=== PATIENT | male | born 1950 | race Caucasian/White ===

== ENCOUNTER → 2018-11-07 13:04 | Emergency (ER) | payer BC, MEDICARE ==
[~2018-11-07 13:04] MED LIST: cloNIDine TAB* 0.1 MG PO ONE; traMADol TAB* 50 MG PO ONE
--- NOTE | 2018-11-07 13:42 | ED ---
Hypertension - HPI Summary HPI Summary: A 68 y/o M presents to ED with c/o elevated BP (220/110) onset this AM. He's been taking his BP daily as he's scheduled to see his PCP in a month. Yesterday , it was in the high 160s systolic. He takes Losartan daily and Atenolol bid. He s had Losartan 100mg today at 0800. Denies CP, SOB. PMHx: stroke in 2010 (no deficits); DM II and takes Metformin bid. He does not see a policy advisor. He notes having a muscular pain in his L glute. Vitals at bedside: BP: 221/92 and HR: 59 bpm. 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, Medical Records Onset/Duration: Started Hours Ago, Still Present Timing: Constant Associated Signs & Symptoms: Negative, Other: - muscular pain in L glute - Allergies/Home Medications Allergies/Adverse Reactions: Allergies Allergy/AdvReac Type Severity Reaction Status Date / Time No Known Allergies Allergy Verified 11/07/18 13:14 Home Medications: Home Medications Atorvastatin* [Lipitor*] 40 mg PO DAILY 11/07/18 [History Confirmed 11/07/18] Clobetasol Propionate [Clobex] 125 ml TOPICAL DAILY 11/07/18 [History Confirmed 11/07/18] Ibuprofen TAB* [Motrin TAB* 400 MG] 400 mg PO Q6H PRN 11/07/18 [History Confirmed 11/07/18] Losartan TAB* [Cozaar TAB*] 50 mg PO DAILY 11/07/18 [History Confirmed 11/07/18] Sildenafil Citrate [Viagra] 100 mg PO DAILY PRN 11/07/18 [History Confirmed 06/17] PMH/Surg Hx/FS Hx/Imm Hx Previously Healthy: No - stroke Endocrine/Hematology History: Reports: Hx Diabetes Cardiovascular History: Reports: Hx Hypertension Infectious Disease History: No Infectious Disease History: Denies: Traveled Outside the [place] in Last 30 Days - Family History Family History: mother - stroke - Social History Occupation: Retired Lives: With Family Review of Systems Positive: Other - pos: elevated BP. Negative: Chest Pain Negative: Shortness Of Breath Musculoskeletal: Other - pos: pain to L glute All Other Systems Reviewed And Are Negative: Yes Physical Exam - Summary Physical Exam Summary: GENERAL: Patient is a well-developed and nourished MALE who is lying comfortable in the stretcher. Patient is not in any acute respiratory distress. HEAD AND FACE: Normocephalic EYES: PERRLA, EOMI x 2. EARS: Hearing grossly intact. MOUTH: Oropharynx within normal limits. NECK: Supple, trachea is midline, no adenopathy, no JVD, no carotid bruit. CHEST: Symmetric, no tenderness at palpation LUNGS: Clear to auscultation bilaterally. No wheezing or crackles. CVS: Regular rate and rhythm, S1 and S2 present, no murmurs or gallops appreciated. ABDOMEN: Soft, non-tender. Bowel sounds are normal. No abdominal abnormal pulsations. EXTREMITIES: Full ROM in all major joints, no edema, no cyanosis or clubbing. NEURO: Alert and oriented x 3. No acute neurological deficits. Speech is normal and follows commands. SKIN: Dry and warm Triage Information Reviewed: Yes Vital Signs On Initial Exam: Initial Vitals Temp Pulse Resp BP Pulse Ox 97.6 F 61 16 247/107 59 11/07/18 13:10 11/07/18 13:10 11/07/18 13:10 11/07/18 13:10 11/07/18 13:10 Vital Signs Reviewed: Yes Diagnostics - Vital Signs Vital Signs Temp Pulse Resp BP Pulse Ox 11/07/18 13:10 97.6 F 61 16 247/107 59 - Laboratory Result Diagrams: 11/07/18 13:45 11/07/18 13:45 Lab Statement: Any lab studies that have been ordered have been reviewed, and results considered in the medical decision making process. - Radiology CXR Radiology Interpretation Completed By: Radiologist Summary of Radiographic Findings: IMPRESSION: No active cardiopulmonary dz. ED provider has reviewed this report. - EKG 1350 Cardiac Rate: NL - 66bpm EKG Rhythm: Sinus Rhythm Summary of EKG Findings: nml axis, nml interval Re-Evaluation - Re-Evaluation 1 Re-Evaluation Time: 15:58 Change: Improved Comment: Discussing results and plans for discharge. Pt's vitals ~ 170 systolic. Pt requesting Tramadol for his glute pain, he thinks the elevated BP is largely caused by that. Discussed that he should not take Ibuprofen due to his kidney function. Hypertension Course/Dx - Course Course Of Treatment: Pt is a 68 y/o M presenting with hypertensive episode at home (220/110). Workup is remarkable for APTT: 37.3, BUN: 29, Creatinine: 1.28 , BUN/C ratio: 22.7, glucose: 170, BNP: 165. Patient's BP is 25% of when he came in. Discussed with patient that he should stop taking Ibupfrofen due to his kidney function. I will prescribe Tramadol for his glute pain, as patient feels the elevated BP is in part due to the pain. The patient will be discharged. I discussed results with patient and he reports feeling better. He is hemodynamically stable and safe for discharge. Strict return precautions given and he will otherwise follow up with his PCP as scheduled tomorrow at 1015. - Diagnoses Provider Diagnoses: Hypertension Discharge - Sign-Out/Discharge Documenting (check all that apply): Patient Departure - DC Patient Received Moderate/Deep Sedation with Procedure: No - Discharge Plan Condition: Stable Disposition: HOME Prescriptions: traMADol TAB* [Ultram*] 50 mg PO Q8H PRN #15 tab MDD 3 PRN Reason: Pain Patient Education Materials: Hypertension (ED) Referrals: Lisa Martinez DO [Primary Care Provider] - 2 Days Additional Instructions: Follow up with your primary care physician in 1-3 days. RETURN TO THE EMERGENCY DEPARTMENT FOR CHANGING OR WORSENING SYMPTOMS. - Billing Disposition and Condition Condition: STABLE Disposition: Home - Attestation Statements Document Initiated by Celeste: Yes Documenting Scribe: Carol William Provider For Whom Celeste is Documenting (Include Credential): Dr. Andrea Diamond MD Scribe Attestation: I, Carol William, scribed for Dr. Andrea Diamond MD on 11/07/18 at 9887. Scribe Documentation Reviewed: Yes Provider Attestation: The documentation as recorded by the Carol moore accurately reflects the service I personally performed and the decisions made by me, Dr. Andrea Diamond MD Status of Scribe Document: Viewed
[2018-11-07 13:54] LABS: ABS Basophils 0.1 10^3/ul (0-0.2); ABS Eosinophils 0.3 10^3/ul (0-0.6); ABS Lymphocytes 1.6 10^3/ul (1.0-4.8); ABS Monocytes 0.9 10^3/ul (0-0.8); ABS Neutrophils 7.2 10^3/ul (1.5-7.7); ABS Nucleated RBC 0 10^3/ul; Eosinophil % 2.7 %; Hematocrit 44 % (36-46); Mean Corpuscular HGB Conc 34 g/dL (31-36); Mean Corpuscular Hemoglobin 32 pg (27-31); Mean Corpuscular Volume 96 fL (80-94); Mean Platelet Volume 6.5 fL (7.4-10.4); Nucleated Red Blood Cells % 0.1; Platelet Count 319 10^3/uL (150-450); Red Blood Count 4.64 10^6 /uL (4.18-5.48); Red Cell Distribution Width 14 % (10.5-15); White Blood Count 10.1 10^3/uL (3.5-10.8)
[2018-11-07 14:04] LABS: Activated Partial Thrombo Time 37.3 seconds (26.0-36.3); INR 0.84 (0.77-1.02)
[2018-11-07 14:12] LABS: Albumin 4.3 g/dL (3.2-5.2); Albumin/Globulin Ratio 1.7 (1-3); BUN/Creatinine Ratio 22.7 (8-20); Calcium 9.5 mg/dL (8.6-10.3); EGFR Non-African American 56.2 (>60); Globulin 2.5 g/dL (2-4); Potassium 4.3 mmol/L (3.5-5.0); Total Bilirubin 0.6 mg/dL (0.2-1.0); Total Protein 6.8 g/dL (6.4-8.9)
[2018-11-07 14:13] LABS: Troponin I 0.01 ng/mL (<0.04)
[2018-11-07 14:16] LABS: CKMB ng/mL 2.2 ng/mL (0.6-6.3)
[2018-11-07 16:02] VITALS: BP 172/94
== END | disposition home or self-care (01) ==
LOC: ED 13:04
DX: I10 Essential (primary) hypertension (principal); E11.9 Type 2 diabetes mellitus without complications
CPT/HCPCS: 36415; 71045; 80053; 82553; 83605; 83880; 84484; 85025; 85610; 85730; 93005; 99284; A9270-GY

== ENCOUNTER 2018-11-11 17:55 | Emergency (ER) | payer BC, MEDICARE ==
[2018-11-11] MEDS ORDERED: Metoprolol Tartrate TAB* 25 MG PO ONE ×2 (20:00→20:01)
--- NOTE | 2018-11-11 20:01 | ED ---
Complex/Multi-Sys Presentation - HPI Summary HPI Summary: Patient is a 68 y/o M presenting to ED with complaints of high blood pressure and tingling to left side of face that onset at around 1600 today, but per triage note "pt is unsure of exact time". 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 Patient has Hx of CVA back in 2010. Patient claims no residual deficit or needed physical therapy as a result from stroke. He notes that he also experienced left sided facial tingling during his previous stroke episode. Patient notes that he was at [facility] four days ago for high BP as well, patient was discharged to home with Dx of HTN and instructed to follow up with PCP. Patient notes that he was placed on Amlodipine 5 mg and had his Losartan increased from 50 to 100 mg three days ago by PCP. Patient is also on Atorvastatin, baby ASA daily, metformin 500 BID, doxycycline 20 mg BID for peridontal disease. Hx of diabetes, no Hx of anxiety. On traige, pain is denied , nothing is noted to aggravate/alleviate Sx. Home medications and allergies are reviewed. BP 154/79, pulse 71 o2 96. - History Of Current Complaint Chief Complaint: EDHypertension Time Seen by Provider: 11/11/18 19:43 Hx Obtained From: Patient, Medical Records Onset/Duration: Lasting Hours - onset 1600 today Timing: Intermittent, Lasting: Severity Currently: None - pain denied Aggravating Factor(s): nothing Alleviating Factor(s): nothing Associated Signs And Symptoms: Positive: Other - high BP, left facial tingling - Allergies/Home Medications Allergies/Adverse Reactions: Allergies Allergy/AdvReac Type Severity Reaction Status Date / Time No Known Allergies Allergy Verified 11/07/18 13:14 PMH/Surg Hx/FS Hx/Imm Hx Endocrine/Hematology History: Reports: Hx Diabetes Cardiovascular History: Reports: Hx Hypertension, Other Cardiovascular Problems/ Disorders - DIABETIC Psychiatric History: Denies: Hx Anxiety Infectious Disease History: No Infectious Disease History: Denies: Traveled Outside the [place] in Last 30 Days - Family History Known Family History: Positive: Other Family History: mother - stroke - Social History Alcohol Use: Weekly Alcohol Amount: 3-4 days weekly Substance Use Type: Reports: None Smoking Status (MU): Former Smoker Review of Systems Cardiovascular: Other - reported high BP Neurological: Other - left sided facial tingling All Other Systems Reviewed And Are Negative: Yes Physical Exam - Summary Physical Exam Summary: VITAL SIGNS: Reviewed. GENERAL: Patient is a well-developed and nourished male who is lying comfortable in the stretcher. Patient is not in any acute respiratory distress. HEAD AND FACE: No signs of trauma. No ecchymosis, hematomas or skull depressions. No sinus tenderness. EYES: PERRLA, EOMI x 2, No injected conjunctiva, no nystagmus. EARS: Hearing grossly intact. Ear canals and tympanic membranes are within normal limits. MOUTH: Oropharynx within normal limits. NECK: Supple, trachea is midline, no adenopathy, no JVD, no carotid bruit, no c- spine tenderness, neck with full ROM. CHEST: Symmetric, no tenderness at palpation LUNGS: Clear to auscultation bilaterally. No wheezing or crackles. CVS: Regular rate and rhythm, S1 and S2 present, no murmurs or gallops appreciated. ABDOMEN: Soft, non-tender. No signs of distention. No rebound no guarding, and no masses palpated. Bowel sounds are normal. EXTREMITIES: FROM in all major joints, no edema, no cyanosis or clubbing. NEURO: Alert and oriented x 3. No acute neurological deficits. Speech is normal and follows commands. GCS 15. SKIN: Dry and warm Triage Information Reviewed: Yes Vital Signs On Initial Exam: Initial Vitals Temp Pulse Resp BP Pulse Ox 98.3 F 69 18 205/89 97 11/11/18 18:11 11/11/18 18:11 11/11/18 18:11 11/11/18 18:11 11/11/18 18:11 Vital Signs Reviewed: Yes Diagnostics - Vital Signs Vital Signs Temp Pulse Resp BP Pulse Ox 11/11/18 19:03 68 173/91 96 11/11/18 19:02 70 96 11/11/18 18:11 98.3 F 69 18 205/89 97 - Laboratory Lab Statement: Any lab studies that have been ordered have been reviewed, and results considered in the medical decision making process. - CT BRAIN CT CT Interpretation Completed By: Radiologist Summary of CT Findings: IMPRESSION: No acute intracranial abnormality. THIS REPORT WAS REVIEWED BY DR. BERMUDEZ. Re-Evaluation - Re-Evaluation First Eval Re-Evaluation Time: 21:42 Comment: Patient has been sleeping comfortably, BP is 167/82 and HR 60. Results of labs and tests were discussed, patient will be discharged to home and follow up with PCP. He is agreeable with this plan. Complex Multi-Symp Course/Dx Course Of Treatment: Patient is a 68 y/o M presenting to ED with complaints of high blood pressure and tingling to left side of face that onset at around 1600 today, but per triage note "pt is unsure of exact time". Patient has Hx of CVA back in 2010. Patient claims no residual deficit or needed physical therapy as a result from stroke. He notes that he also experienced left sided facial tingling during his previous stroke episode. Patient notes that he was at [facility] four days ago for high BP as well, patient was discharged to home with Dx of HTN and instructed to follow up with PCP. Patient notes that he was placed on Amlodipine 5 mg and had his Losartan increased from 50 to 100 mg three days ago by PCP. BP 154/79, pulse 71 o2 96. Physical exam is unremarkable. During ED course, patient received Lopressor [address] IMPRESSION: No acute intracranial abnormality. 2141 - Patient has been sleeping comfortably, BP is 167/82 and HR 60. Results of labs and tests were discussed, patient will be discharged to home and follow up with PCP. He is agreeable with this plan. - Diagnoses Provider Diagnoses: HTN (hypertension) Discharge - Sign-Out/Discharge Documenting (check all that apply): Patient Departure - DISCHARGE Patient Received Moderate/Deep Sedation with Procedure: No - Discharge Plan Condition: Stable Disposition: HOME Patient Education Materials: Hypertension (ED) Referrals: Lisa Martinez DO [Primary Care Provider] - 3 Days Additional Instructions: INCREASE YOUR AMLODIPINE FROM 5 MG TO 10 MG. PLEASE RETURN TO THE EMERGENCY DEPARTMENT IMMEDIATELY FOR WORSENING OR CONCERNING SYMPTOMS. FOLLOW UP WITH YOUR PRIMARY CARE PHYSICIAN WITHIN THREE DAYS. - Billing Disposition and Condition Condition: STABLE Disposition: Home - Attestation Statements Document Initiated by Celeste: Yes Documenting Scribe: STACIA INMAN Provider For Whom Celeste is Documenting (Include Credential): MAGEN BERMUDEZ MD Scribisaac Attestation: STACIA Christianson scribed for MAGEN BERMUDEZ MD on 11/12/18 at 0601. Scribe Documentation Reviewed: Yes Provider Attestation: The documentation as recorded by the STACIA moore accurately reflects the service I personally performed and the decisions made by me, MAGEN BERMUDEZ MD Status of Scribe Document: Viewed
[2018-11-11 21:55] VITALS: BP 167/82
== END 2018-11-11 21:54 | disposition home or self-care (01) ==
LOC: ED 17:55
DX: I10 Essential (primary) hypertension (principal); E11.9 Type 2 diabetes mellitus without complications; Z87.891 Personal history of nicotine dependence
CPT/HCPCS: 70450; 99283